=== PATIENT | male | born 1980 | race Caucasian/White ===

== ENCOUNTER 2017-02-25 14:50 | Emergency (ER) | payer OTHER ==
[2017-02-25 16:25] LABS: HEMOGLOBIN 15.7 gm/dl (14.0-17.5); RED BLOOD COUNT 5.28 M/UL (4.20-5.50); WHITE BLOOD COUNT 10.5 K/UL (4.5-11.0)
[2017-02-25 16:49] LABS: BUN/CREATININE RATIO 16 (0-10)
== END 2017-02-25 18:57 | disposition home or self-care (01) ==
LOC: ER1 14:50
PROVIDERS: Emergency Medicine
DX: M51.26 Other intervertebral disc displacement, lumbar region (principal); Z88.8 Allergy status to other drugs, medicaments and biological substances
CPT/HCPCS: 36415; 72131; 80053; 80307; 81001; 82550; 82553; 83874; 84484; 85025; 93005; 96374; 96375; 99284; J1885